=== PATIENT | male | born 1935 | race Caucasian/White ===

== ENCOUNTER → 2016-10-26 | Outpatient (CLI) | payer MEDICARE, OTHER ==
[~2016-10-26] MED LIST: ASPIRIN81 M1 PO; ATENOLOL25 MG PO; ATIVAN2 MG PO; CEFTIN500 MG PO; DICYCLOMINE HCL20 MG PO; DIOVAN160 MG PO; FUROSEMIDE20 MG PO; LO-DOSE ASPIRIN81 M1 PO; MECLIZINE HCL25 MG PO; PAROXETINE HCL10 MG PO; PRAVASTATIN SOD40 MG PO; SPIRONOLACTONE25 MG PO; TIMOLOL MALEATE; TIMOLOL MALEATE5 MG PO; TRICOR145 MG PO; TYLENOL EXTRA500 MG PO
== END | disposition home or self-care (01) ==
LOC: CDC 11:10
DX: I44.7 Left bundle-branch block, unspecified (principal); H25.11 Age-related nuclear cataract, right eye
CPT/HCPCS: 93000